=== PATIENT | male | born 1995 | race Two or more races ===

== ENCOUNTER 2022-06-21 18:16 | Emergency (ER) | payer MEDICAID, OTHER ==
[~2022-06-21] VITALS: Ht 180.3 cm; Wt 68.2 kg
[2022-06-21] MEDS ORDERED: MECL12.514 PO (23:07)
[2022-06-21 23:14] VITALS: BP 117/82
[2022-06-21] MEDS ORDERED: MECLIZINE HCL 25 MG TAB PO ONE (23:15)
== END 2022-06-21 23:33 | disposition home or self-care (01) ==
LOC: ER 18:16
DX: H81.01 Meniere's disease, right ear (principal)
CPT/HCPCS: 99283; J8597

== ENCOUNTER 2023-12-19 18:11 | Emergency (ER) | payer MEDICAID ==
[~2023-12-19] VITALS: Ht 180.3 cm; Wt 70.4 kg
[~2023-12-19 18:11] MED LIST: MECL12.586 PO
[2023-12-19 18:47] LABS: Basophils # (auto) 0.1 10 ^3/uL (0-0.2); Basophils % (auto) 0.8 % (0.0-2.0); Eosinophils # (auto) 0.2 10 ^3/uL (0-0.8); Eosinophils % (auto) 2.1 % (0.0-7.0); Hematocrit 48.1 % (41.0-53.0); Hemoglobin 16.7 g/dL (13.5-17.5); Lymphocytes # (auto) 2.6 10 ^3/uL (0.4-5.4); Mean Corpuscular Hemoglobin 31.4 pg (28.0-32.0); Mean Corpuscular Hgb Conc. 34.6 g/dL (32.0-36.0); Mean Corpuscular Volume 90.7 fL (80.0-100.0); Monocytes # (auto) 1.3 10 ^3/uL (0-1.3); Monocytes % (auto) 11.8 % (0.0-12.0); Neutrophils # (auto) 6.7 10 ^3/uL (1.6-8.6); Neutrophils % (auto) 61.3 % (37.0-80.0); Red Blood Cells 5.31 10^6/uL (4.5-5.90); Red Cell Distribution Width 13.4 % (11.8-14.3); White Blood Cell 10.9 10^3/uL (4.4-10.8)
[2023-12-19 19:03] LABS: Alanine Aminotransferase 22 U/L (7-40); Albumin 4.5 g/dL (3.2-4.8); Alkaline Phosphatase 90 U/L (46-116); Anion Gap 6 (5-15); Aspartate Aminotransferase 12 U/L (13-40); BUN/Creatinine Ratio 13.3 (10.0-20.0); Bilirubin, Total 0.6 mg/dL (0.2-1.0); Blood Urea Nitrogen 13 mg/dL (9-23); Calcium 9.9 mg/dL (8.5-10.1); Carbon Dioxide 25 mmol/L (20-30); Chloride 107 mmol/L (98-107); Glucose 102 mg/dL (74-106); Potassium 4.2 mmol/L (3.5-5.1); Sodium 138 mmol/L (136-145); Total Protein 7.2 g/dL (5.7-8.2)
[2023-12-19] MEDS ORDERED: HYDR-3682 PO (21:06)
[2023-12-19 21:27] VITALS: BP 121/84; PULSE 73; RESP 14; O2SAT 98
[2023-12-19] MEDS: LORazepam 0.5 MG TAB PO ONE (21:40)
[2023-12-19 21:42] VITALS: TEMP 98.9
== END 2023-12-19 21:07 | disposition home or self-care (01) ==
LOC: ER 18:11
DX: R07.9 Chest pain, unspecified (principal)
CPT/HCPCS: 36415; 71045; 80053; 84484; 85025; 93005